=== PATIENT | female | born 1995 | race Caucasian/White ===

== ENCOUNTER 2017-11-09 14:30 | Emergency (ER) | END 2017-11-09 17:23 | disposition home or self-care (01) ==

== ENCOUNTER 2018-02-15 16:09 | Emergency (ER) | END 2018-02-15 19:10 | disposition home or self-care (01) ==

== ENCOUNTER 2018-03-14 18:51 | Emergency (ER) | END 2018-03-14 22:13 | disposition home or self-care (01) ==

== ENCOUNTER 2018-12-13 20:48 | Emergency (ER) | payer MEDICAID ==
[~2018-12-13] VITALS: Ht 154.9 cm; Wt 78.1 kg
[~2018-12-13 20:48] MED LIST: DOCU-144 PO; LORA-441 PO; SULF1TAB31 PO
[2018-12-13 21:16] VITALS: BP 130/58; PULSE 76; RESP 18; Ht 154.9 cm; Wt 78.1 kg
== END 2018-12-13 23:17 | disposition left against medical advice (07) ==
LOC: FTE 20:48
DX: Z53.21 Procedure and treatment not carried out due to patient leaving prior to being seen by health care provider (principal)